=== PATIENT | male | born 1960 | race Caucasian/White ===

== ENCOUNTER 2017-06-20 08:58 | Outpatient (CLI) ==
--- NOTE | 2017-06-20 10:05 | CT ---
Exam: CT of the chest without contrast History: Shortness of breath and chest pain Technique: [address] of the chest without intravascular contrast FINDINGS: The lung windows show no old infiltrative opacities. No suspicious nodules masses or infi ltrates. Trace biapical linear scarring. No emphysematous change. There is no pleural fluid or pneum othorax. The heart and pericardium are unremarkable. Trace atherosclerotic calcification of the aor ta and coronary arteries. No pathologic lymph node enlargement or abundance of the mediastinum. No acute findings of the chest wall soft tissues or bony thorax. No abnormalities of the upper abdomen. Impression: 1. Minor biapical scarring. No acute findings of the chest. 2. Minor atherosclerotic vascular calcification.
== END 2017-06-20 08:59 | disposition home or self-care (01) ==
LOC: CAR 08:58
PROVIDERS: ATTEND Nurse Practitioner Family
DX: R91.1 Solitary pulmonary nodule (principal); R06.00 Dyspnea, unspecified

== ENCOUNTER 2018-05-30 09:33 | Outpatient (CLI) ==
--- NOTE | 2018-05-30 11:25 | DI ---
EXAM: Right hand three-view HISTORY: Right hand pain COMPARISON: None FINDINGS: No fracture or dislocation. Mild scattered osteophytic change of the hand with joint spac e narrowing osteophyte formation. Tiny nonspecific calcifications adjacent to the third distal metaca rpal. No focal soft tissue abnormality. IMPERSSION: Mild osteoarthritis.
== END 2018-05-30 09:34 | disposition home or self-care (01) ==
LOC: RAD 09:33
PROVIDERS: ATTEND Nurse Practitioner Family
DX: M79.641 Pain in right hand (principal)